=== PATIENT | male | born 1980 | race Caucasian/White ===

== ENCOUNTER 2017-04-08 17:58 | Emergency (ER) | payer OTHER ==
[~2017-04-08] VITALS: Ht 165.1 cm; Wt 78.1 kg
[2017-04-08 18:05] VITALS: BP 126/74
[2017-04-08] MEDS ORDERED: NACL 0.9% 1,000 ML IV SCH (18:54)
[2017-04-08] MEDS ORDERED: ONDANSETRON 4 MG/2 ML VIAL IVP ONE (18:55)
[2017-04-08] MEDS ORDERED: KETOROLAC 30 MG/ML VIAL IVP ONE (18:55)
[2017-04-08] MEDS ORDERED: MORPHINE SULFATE 4 MG/ML SYR IVP ONE (18:55)
[2017-04-08 19:00] LABS: BASOPHILS # (AUTO) 0.3 K/uL (0.00-0.22); EOSINOPHILS # (AUTO) 0.2 K/uL (0-0.4); HEMATOCRIT 46.8 % (36-52); HEMOGLOBIN 15.7 g/dL (12.0-18.0); LYMPHOCYTES # (AUTO) 2.5 K/uL (2.0-11.5); MEAN CORPUSCULAR HEMOGLOBIN 29 pg (27-31); MEAN CORPUSCULAR HGB CONC 34 g/dL (33-37); MEAN CORPUSCULAR VOLUME 87 fL (80-94); MONOCYTES # (AUTO) 0.7 K/uL (0.8-1.0); NEUTROPHILS # (AUTO) 5.4 K/uL (1.8-7.7); PLATELET COUNT (AUTO) 239 K/uL (140-450); RED BLOOD CELL COUNT(AUTO) 5.42 MIL/uL (4.20-6.10); RED CELL DISTRIBUTION WIDTH 12.2 % (11.6-13.7); WHITE BLOOD COUNT (AUTO) 9.1 K/uL (4.8-10.8)
[2017-04-08 19:06] LABS: APPEARANCE,URINE CLEAR (CLEAR); BILIRUBIN,URINE NEGATIVE (NEGATIVE); BLOOD, URINE NEGATIVE (NEGATIVE); COLOR,URINE YELLOW (YELLOW); LEUKOCYTE ESTERASE ,URINE NEGATIVE (NEGATIVE); NITRITE, URINE NEGATIVE (NEGATIVE); PH,URINE 5.5 (5.0-9.0); UGLUCOSE NEGATIVE (NEGATIVE)
[2017-04-08 19:17] LABS: ALBUMIN 4.1 g/dL (3.4-5.0); ANION GAP 12.4 (8-16); CARBON DIOXIDE 27.4 mmol/L (21-32); CREATININE 1.1 mg/dL (0.7-1.3); POTASSIUM 3.8 mmol/L (3.5-5.1); TOTAL BILIRUBIN 0.3 mg/dL (0.0-1.0)
--- NOTE | 2017-04-08 19:25 | NUR ---
patient ambulated to er bed 1
--- NOTE | 2017-04-08 19:30 | NUR ---
PATIENT IS A 28 Y/O MALE WHO PRESENTS TO THE ED C/O ABD PAIN. PT STATES, "MY STOMACH HAS BEEN HURTING FOR ABT 1 WEEK NOW." PT REPORTS 8/10 ACHING ABD PAIN THAT RADIATES TO THE BACK. PT DENIES CP, SOB, N/V/D, REPORTS CONSTIPATION. PT AAOX4, RR EVEN/UNLABORED. PT REPOSITIONED FOR COMFORT, BED IN LOWEST POSITION. ER MD DR. SCHROEDER NOTIFIED. WILL CONTINUE TO MONITOR.
[2017-04-08] MEDS ORDERED: LACTULOSE 20 GM/30 ML UDC PO ONE (20:05)
[2017-04-08 20:35] VITALS: BP 129/80
== END 2017-04-08 20:35 | disposition home or self-care (01) ==
LOC: MED 17:58
DX: K59.00 Constipation, unspecified (principal); F41.9 Anxiety disorder, unspecified; J45.909 Unspecified asthma, uncomplicated
CPT/HCPCS: 36415; 74176; 80053; 81003; 82150; 83690; 85025; 96361; 96374; 96375; 99285; J1885; J2270; J2405; J7030